=== PATIENT | male | born 1955 | race Caucasian/White ===

== ENCOUNTER 2021-09-11 13:59 | Inpatient (IN) | payer MEDICARE ==
[~2021-09-11] VITALS: Ht 172.7 cm; Wt 114.1 kg
[2021-09-11] VITALS (18 sets, daily range): BP systolic 110–161; BP diastolic 65–98
[2021-09-11] MEDS ORDERED: DEXTROSE 50%-WATER SYRINGE IV PRN (20:30)
[2021-09-11] MEDS ORDERED: REMDESIVIR (EUA) 200 MG in NS 100ML 100 ML IV STA (20:30)
--- NOTE | 2021-09-11 20:30 | PCM.HP ---
HISTORY & PHYSICAL HISTORY & PHYSICAL DATE OF ADMISSION: September 11, 2021 CHIEF COMPLAINT: Progressively worsening shortness of breath over 1 week HISTORY OF PRESENT ILLNESS: 66-year-old male with previous history of diabetes mellitus hypertension and dyslipidemia was apparently in her usual health he claims about 1 week prior to this admission developed upper respiratory symptoms that progressively got worse therefore went to the local emergency room today and fou nd to have Covid positive with severe hypoxemia and troponin leak patient was brought to this hospital for further managed,Patient denies any chest pain nausea vomiting abdominal pain no diarrhea no urinary symptoms Denies any headache blurry vision swallowing difficulties ALLERGIES: No known drug allergies CURRENT MEDICATIONS: Atenolol Metformin glipizide and fenofibrate -Doses not known PAST MEDICAL HISTORY: Diabetes mellitus hypertension hyperlipidemia right knee arthroplasty Patient also claimed that he had Covid infection about 8 months prior to this admission to SOCIAL HISTORY: Denies smoking alcohol or drug use 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, Lives alone Never immunized against Covid 2 FAMILY HISTORY: Late onset heart disease with father REVIEW OF SYSTEMS: Losing weight blood sugar under control no effort dyspnea no effort angina no easy fatigability normal appetite regular bowel movement no urinary symptoms all systems reviewed and negative except mentioned above VITAL SIGNS: Vital Signs Date Time Temp Pulse Resp B/P (MAP) Pulse Ox O2 Delivery O2 Flow Rate FiO2 09/11/21 18:48 22 94 09/11/21 18:47 96 22 94 Comfort Casey 30.00 100 PHYSICAL EXAMINATION: HEENT anicteric sclera pupil round react light mucous membrane is Slightly dry neck supple no JVD or carotid bruit noted Lungs bilateral Rales present prolonged expiration no wheezes heard Heart regular rate and rhythm no murmur gallop appreciated Abdomen obese nontender bowel sounds present soft no guarding no rigidity no organomegaly noted Extremities Trace edema ,no calf tenderness 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 oriented normal mood normal insight cranial nerves grossly intact none muscle power 5/5 in all 4 limbs nonfocal exam LABORATORY DATA: None available IMAGING: None available SUMMARY: 66-year-old male with previous history of diabetes mellitus hypertension dyslipidemia previous Covid infection presented with recurrent infection and severe hypoxemic respiratory failure, he is unvaccinated ASSESSMENT/PLAN: Acute hypoxemic respiratory failure Covid SARS 2 infection Obesity Diabetes mellitus type 2 Hypertension History of dyslipidemia Plan: We will start on remdesivir dexamethasone insulin Lovenox high flow oxygen by nasal cannula and labs in the morning TREVOR MODI MD Sep 11, 2021 20:30
[2021-09-11] MEDS: LOVENOX SQ SCH (21:00)
[2021-09-11] MEDS ORDERED: NS 100ML 100 ML IV ONE (21:29)
[2021-09-11] MEDS ORDERED: NS 250ML 250 ML ONE (21:49)
[2021-09-12] VITALS (81 sets, daily range): BP systolic 95–156; BP diastolic 44–109
--- NOTE | 2021-09-12 04:57 | PRM.PN ---
Subjective Subjective Date: Sep 12, 2021 Time: 04:57 Subjective No chest pain at rest chest discomfort with coughing only no PE on CT [facility] patient did not get his flu or Covid vaccines he is Covid positive and influenza B positive patient wishes to be DO NOT INTUBATE. Upright in bed on comfort flow VTE VTE Risk Total Score: >5 VTE Risk Score VTE Risk: Score 0-1 = Low Risk (Aggressive mobilization; early ambulation; no VTE prophylaxis required) Score 2: Moderate Risk (Intermittent/Pneumatic Compression Device OR Lovenox/Heparin/Coumadin) Score 3-4: High Risk (Intermittent/Pneumatic Compression Device AND Lovenox/Heparin/Coumadin) Score > or =5: Highest Risk (Intermittent/Pneumatic Compression Device AND Lovenox/Heparin/Coumadin) Antico:Hep/LMWH/Coum/Xarelto: Yes Mechanical device ordered: Yes Review of Systems Constitutional: Weakness; No: Fever, Chills, Sweats, Malaise, Other Eyes: No: Pain, Vision change, Conjunctivae inflammation, Eyelid inflammation, Other, Redness ENT: No: Ear pain, Ear discharge, Nose pain, Nose discharge, Nose congestion, Mouth pain, Mouth swelling, Throat pain, Throat swelling, Other Respiratory: Cough Cardiovascular: No: Chest Pain Gastrointestinal: No: Nausea, Vomiting, Abdominal Pain, Diarrhea, Constipation, Melena, Hematochezia, Other Genitourinary: No Dysuria, No Frequency, No Incontinence, No Hematuria, No Retention, No Other Musculoskeletal: No: other, neck pain, shoulder pain, arm pain, back pain, hand pain, leg pain, foot pain Skin: No: Rash, Lesions, Jaundice, Bruising, Other Neurological: Weakness; No: Numbness, Incoordination, Change in speech, Confusion, Seizures, Other Objective General: Alert, Oriented X3, Cooperative, No acute distress, Other (Sitting upright on comfort flow) HEENT: Atraumatic, PERRLA Neck: Supple, No JVD Lungs: Clear to auscultation, Other (Mildly coarse breath sounds throughout) Heart: Regular rate, Normal S1, Normal S2, No murmurs Abdomen: Normal bowel sounds, Soft, No tenderness, No masses Extremities: No clubbing, No cyanosis, No edema, Normal pulses, No tenderness/swelling Skin: No rashes, No breakdown, No significant lesion Neuro: Normal gait, Normal speech, Strength at 5/5 X4 ext, Normal tone, Sensation intact Psych/Mental Status: Mental status NL, Mood NL All Results(Lab/Rad) Current Medications Medications (Trade) Dose Ordered Sig/Gabo Route PRN Reason Start Time Stop Time Status Last Admin Dose Admin Remdesivir 200 mg/ Sodium Chloride 140 ml @ 120.69 mls/ hr OT STAT IV 09/11/21 20:30 09/11/21 21:39 UNV 09/11/21 21:00 Remdesivir 100 mg/ Sodium Chloride 120 ml @ 111.111 mls/hr Q24HRS IV 09/12/21 20:30 09/16/21 00:00 UNV Enoxaparin Sodium (Lovenox) 40 mg Q24HRS SQ 09/11/21 20:30 10/11/21 20:29 09/11/21 21:00 Dextrose (Dextrose 50%-Water Syringe) 25 ml STAT PRN IV HYPOGLYCEMIA 09/11/21 20:30 10/11/21 20:29 Sodium Chloride 100 ml @ ud STK-MED ONCE IV 09/11/21 21:29 09/11/21 21:30 DC Sodium Chloride 250 ml @ ud STK-MED ONCE .ROUTE 09/11/21 21:49 09/11/21 21:50 DC Course Sepsis Screening Results: Posi: NEGATIVE Sepsis Qualifier/Stage: NO DEFINITE RISK Vitals & review Data Current Medications Medications (Trade) Dose Ordered Sig/Gabo PRN Reason Start Time Stop Time Status Last Admin Dextrose (Dextrose 50%-Water Syringe) 25 ml STAT PRN HYPOGLYCEMIA 09/11/21 20:30 10/11/21 20:29 Enoxaparin Sodium (Lovenox) 40 mg Q24HRS 09/11/21 20:30 10/11/21 20:29 09/11/21 21:00 Remdesivir 100 mg/ Sodium Chloride 120 ml @ 111.111 mls/hr Q24HRS 09/12/21 20:30 09/16/21 00:00 UNV Remdesivir 200 mg/ Sodium Chloride 140 ml @ 120.69 mls/ hr OT STAT 09/11/21 20:30 09/11/21 21:39 UNV 09/11/21 21:00 LEVEL 1 SEPSIS INFECTION CRITE: None/Not assessed O2 Sat by Pulse Oximetry: 91 Oxygen Flow Rate: 30.00 Assessment/Plan Assessment/Plan Assessment/Plan 66-year-old male with previous history of diabetes mellitus hypertension dyslipidemia previous Covid infection presented with recurrent infection and severe hypoxemic respiratory failure, he is unvaccinated. CTA at OSH negative for PE ASSESSMENT/PLAN: Acute hypoxemic respiratory failure Covid SARS 2 infection Obesity Diabetes mellitus type 2 Hypertension History of dyslipidemia Influenza B positive OSH troponin mildly elevated initial trop 131 here trending no clear acute ischemic changes on EKG received ASA remdesivir, oseltamivir, dexamethasone insulin Lovenox high flow oxygen by nasal cannula PPX, pepcid, SCDs Enoxaparin JAZLYN FUENTES MD Sep 12, 2021 04:57
[2021-09-12 05:38] LABS: MEAN CORP HGB 28.2 pg (26-34); RED CELL DISTRIBUTION WIDTH 16.1 % (11.5-14.5)
[2021-09-12 06:02] LABS: BE(B) 3.6 mmol/L (-2.0-2.0); HCO3act 26.8 mmol/L (22.0-26.0); pO2 64.3 mmHg (80.0-100.0)
[2021-09-12 06:23] LABS: CARBON DIOXIDE 23.9 mmol/L (20.0-32)
[2021-09-12] MEDS: PEPCID IV SCH ×2 (08:18→21:00)
[2021-09-12] MEDS: DEXAMETHASONE 10 MG/ML VIAL IV SCH (08:18)
[2021-09-12] MEDS: TAMIFLU PO SCH ×2 (08:19→21:00)
[2021-09-12] MEDS ORDERED: TYLENOL PO ONE (10:26)
[2021-09-12] MEDS ORDERED: TYLENOL PO PRN (11:00)
[2021-09-12] MEDS: VITAMIN D PO SCH (11:00)
[2021-09-12] MEDS: ASPIRIN EC PO SCH (11:00)
[2021-09-12] MEDS ORDERED: DEXTROSE 50%-WATER SYRINGE IV PRN (12:30)
[2021-09-12] MEDS: HUMALOG SQ SCH ×2 (12:31→17:48)
--- NOTE | 2021-09-12 14:54 | TELE.CONS ---
Consultation Reason for Consult: Reason for Consultation: COVID History of Present Illness History of Patient Comments The pt kristine a 66 YOM wiht pmhx of HTN DM and obesity who presents to the hospital for SOB. Pt is noted ot have COVID PNA and influenza per outside hospital report with wornsning hypoxia. Pt on airvo and transferred to Unit. PT started on decadron lovenox and remdesivir as well as oseltamivir Review of Systems Constitutional: Weakness; No: Fever, Chills, Sweats, Malaise, Other Eyes: No: Pain, Vision change, Conjunctivae inflammation, Eyelid inflammation, Other, Redness ENT: No: Ear pain, Ear discharge, Nose pain, Nose discharge, Nose congestion, Mouth pain, Mouth swelling, Throat pain, Throat swelling, Other Respiratory: Cough Cardiovascular: No: Chest Pain Gastrointestinal: No: Nausea, Vomiting, Abdominal Pain, Diarrhea, Constipation, Melena, Hematochezia, Other Genitourinary: No Dysuria, No Frequency, No Incontinence, No Hematuria, No Retention, No Other Musculoskeletal: No: other, neck pain, shoulder pain, arm pain, back pain, hand pain, leg pain, foot pain Skin: No: Rash, Lesions, Jaundice, Bruising, Other Neurological: Weakness; No: Numbness, Incoordination, Change in speech, Confusion, Seizures, Other VITALS REVIEW VITALS Vital Sign - Last 24 Hours 09/12/21 09/12/21 09/12/21 09/12/21 07:00 07:10 07:15 07:25 Pulse 71 67 68 66 Resp 13 26 4 B/P (MAP) 116/70 (85) 102/70 (81) Pulse Ox 92 93 92 92 09/12/21 09/12/21 09/12/21 09/12/21 07:30 07:40 07:45 07:55 Pulse 65 72 65 66 Resp 9 17 B/P (MAP) 114/78 (90) 99/64 (76) Pulse Ox 95 95 95 94 09/12/21 09/12/21 09/12/21 09/12/21 08:00 08:07 09:40 09:45 Pulse 66 72 71 Resp 25 27 B/P (MAP) 132/84 (100) Pulse Ox 95 95 97 O2 Delivery Comfort Casey O2 Flow Rate 30.00 09/12/21 09/12/21 09/12/21/6/22 09:50 09:55 10:00 10:10 Pulse 72 71 72 70 Resp 20 24 18 28 B/P (MAP) 117/76 (90) 114/72 (86) Pulse Ox 93 95 94 97 O2 Delivery Comfort Casey FiO2 100 09/12/21 09/12/21 09/12/21 09/12/21 10:15 10:25 10:30 10:40 Pulse 68 68 67 73 Resp 31 22 23 26 B/P (MAP) 114/72 (86) 113/73 (86) Pulse Ox 96 95 96 92 09/12/21 09/12/21 09/12/21 09/12/21 10:45 10:50 10:55 11:00 Pulse 74 70 71 Resp 27 B/P (MAP) 114/72 (86) Pulse Ox 93 97 95 95 FiO2 80 09/12/21 09/12/21 09/12/21 09/12/21 11:10 11:15 11:25 11:30 Pulse 70 69 72 67 Resp 18 25 23 B/P (MAP) 112/73 (86) 116/68 (84) Pulse Ox 97 97 98 93 09/12/21 09/12/21 09/12/21 09/12/21 11:40 11:45 11:55 12:00 Pulse 68 70 65 Resp 25 23 B/P (MAP) 110/78 (89) 104/62 (76) Pulse Ox 93 90 86 O2 Delivery Comfort Casey O2 Flow Rate 30.00 09/12/21 09/12/21 09/12/21 09/12/21 12:00 12:10 12:11 12:15 Pulse 64 62 68 61 Resp 15 20 20 19 B/P (MAP) 95/62 (73) Pulse Ox 90 90 93 92 O2 Delivery Comfort Casey O2 Flow Rate 30.00 FiO2 80 09/12/21 09/12/21 09/12/21 09/12/21 12:25 12:30 12:40 12:45 Pulse 65 60 60 62 Resp 22 21 21 20 B/P (MAP) 113/75 (88) 124/78 (93) Pulse Ox 94 95 97 96 09/12/21 09/12/21 09/12/21 09/12/21 12:46 12:55 13:00 13:10 Pulse 70 62 65 61 Resp 20 14 16 20 B/P (MAP) 122/78 (93) 126/83 (97) Pulse Ox 97 97 97 97 FiO2 70 09/12/21 09/12/21 09/12/21 09/12/21 13:15 13:25 13:30 13:40 Pulse 60 61 67 112 Resp 19 18 25 18 B/P (MAP) 105/69 (81) 127/82 (97) Pulse Ox 94 94 93 94 09/12/21 09/12/21 09/12/21 09/12/21 13:45 13:55 14:00 14:05 Pulse 129 72 115 72 Resp 21 14 13 22 B/P (MAP) 119/74 (89) Pulse Ox 96 95 95 96 FiO2 60 09/12/21 09/12/21 14:10 14:15 Pulse 72 71 Resp 16 20 B/P (MAP) 105/72 (83) Pulse Ox 95 97 LABS LAB RESULTS Laboratory Tests Test 09/12/21 05:00 09/12/21 09:40 09/12/21 12:02 White Blood Count 4.9 10^3/uL (4.5-11.0) Red Blood Count 4.76 10^6/uL (4.50-5.90) Hemoglobin 13.4 g/dL (13.9-16.3) Hematocrit 42.1 % (37.0-53.0) Mean Corpuscular Volume 88.4 fL (78-100) Mean Corpuscular Hemoglobin 28.2 pg (26-34) Mean Corpuscular Hemoglobin Concent 31.8 g/dL (33-36.5) Red Cell Distribution Width 16.1 % (11.5-14.5) Platelet Count 146 10^3/uL (150-400) Mean Platelet Volume 10.2 fL (7.8-11.0) Blood Gas Sample Site RT BRACIAL ARTERY Blood Gas pH 7.490 (7.350-7.450) Blood Gas PCO2 36.0 mmHg (35.0-45.0) Blood Gas PO2 64.3 mmHg (80.0-100.0) Blood Gas HCO3 26.8 mmol/L (22.0-26.0) Blood Gas Base Excess 3.6 mmol/L (-2.0-2.0) Lazaro Test POSITIVE Arterial Blood Oxygen Saturation 92.7 % (94.0-97.00) Deoxyhemoglobin 7.3 % (0.0-5.0) Carboxyhemoglobin 0.1 % (0.0-3.9) Methemoglobin 0.1 % (0.00-5.0) Total Hemoglobin 14.2 % (12.0-17.8) Total Oxygen Concentration 18.5 % (13.5-17.5) Blood Gas Temperature 37.0 Oxygen Delivery Method (LAB) CF FiO2 100 % (20-101) Sodium Level 137 mmol/L (132-145) Potassium Level 3.5 mmol/L (3.6-5.2) Chloride Level 101.0 mmol/L (96-109) Carbon Dioxide Level 23.9 mmol/L (20.0-32) Total Carbon Dioxide 27.9 mmol/L (23-27) Anion Gap 15.6 Blood Urea Nitrogen 22 mg/dL (7-18) Creatinine 1.10 mg/dL (0.59-1.40) Estimated GFR () 81.3 (>/=60) Est GFR (CKD-EPI)(Non-Afr [place]) 67.2 (>/=60) BUN/Creatinine Ratio 20.0 Glucose Level 160 mg/dL (70-110) Hemoglobin A1c 10.0 % (0-5.7) Calcium Level 8.4 mg/dL (8.4-10.5) Phosphorus Level 2.6 mg/dL (2.5-4.9) Magnesium Level 2.6 mg/dL (1.8-2.4) Total Bilirubin 1.1 mg/dL (0.2-1.0) Aspartate Amino Transf (AST/SGOT) 85 U/L (0-35) Alanine Aminotransferase (ALT/SGPT) 30 U/L (12-78) Alkaline Phosphatase 52 U/L (50-136) Troponin I High Sensitivity 131 ng/L (0-75) 116 ng/L (0-75) Total Protein 6.3 g/dL (6.4-8.2) Albumin 2.1 g/dL (3.4-5.0) Globulin 4.2 Albumin/Globulin Ratio 0.500 Bedside Glucose 266 (70-110) Laboratory Tests Test 09/12/21 05:00 09/12/21 09:40 09/12/21 12:02 White Blood Count 4.9 10^3/uL Red Blood Count 4.76 10^6/uL Hemoglobin 13.4 g/dL Hematocrit 42.1 % Mean Corpuscular Volume 88.4 fL Mean Corpuscular Hemoglobin 28.2 pg Mean Corpuscular Hemoglobin Concent 31.8 g/dL Red Cell Distribution Width 16.1 % Platelet Count 146 10^3/uL Mean Platelet Volume 10.2 fL Blood Gas Sample Site RT BRACIAL ARTERY Blood Gas pH 7.490 Blood Gas PCO2 36.0 mmHg Blood Gas PO2 64.3 mmHg Blood Gas HCO3 26.8 mmol/L Blood Gas Base Excess 3.6 mmol/L Lazaro Test POSITIVE Arterial Blood Oxygen Saturation 92.7 % Deoxyhemoglobin 7.3 % Carboxyhemoglobin 0.1 % Methemoglobin 0.1 % Total Hemoglobin 14.2 % Total Oxygen Concentration 18.5 % Blood Gas Temperature 37.0 Oxygen Delivery Method (LAB) CF FiO2 100 % Sodium Level 137 mmol/L Potassium Level 3.5 mmol/L Chloride Level 101.0 mmol/L Carbon Dioxide Level 23.9 mmol/L Total Carbon Dioxide 27.9 mmol/L Anion Gap 15.6 Blood Urea Nitrogen 22 mg/dL Creatinine 1.10 mg/dL Estimated GFR () 81.3 Est GFR (CKD-EPI)(Non-Afr [place]) 67.2 BUN/Creatinine Ratio 20.0 Glucose Level 160 mg/dL Hemoglobin A1c 10.0 % Calcium Level 8.4 mg/dL Phosphorus Level 2.6 mg/dL Magnesium Level 2.6 mg/dL Total Bilirubin 1.1 mg/dL Aspartate Amino Transf (AST/SGOT) 85 U/L Alanine Aminotransferase (ALT/SGPT) 30 U/L Alkaline Phosphatase 52 U/L Troponin I High Sensitivity 131 ng/L 116 ng/L Total Protein 6.3 g/dL Albumin 2.1 g/dL Globulin 4.2 Albumin/Globulin Ratio 0.500 Bedside Glucose 266 Current Medications Medications (Trade) Dose Ordered Sig/Gabo Route PRN Reason Start Time Stop Time Status Last Admin Dose Admin Remdesivir 200 mg/ Sodium Chloride 140 ml @ 120.69 mls/ hr OT STAT IV 09/11/21 20:30 09/12/21 09:32 DC 09/11/21 21:00 Remdesivir 100 mg/ Sodium Chloride 120 ml @ 111.111 mls/hr HS IV 09/12/21 21:00 3/8/22 20:59 Enoxaparin Sodium (Lovenox) 40 mg Q24HRS SQ 09/11/21 20:30 10/11/21 20:29 09/11/21 21:00 Dextrose (Dextrose 50%-Water Syringe) 25 ml STAT PRN IV HYPOGLYCEMIA 09/11/21 20:30 09/12/21 12:31 DC Sodium Chloride 100 ml @ ud STK-MED ONCE IV 09/11/21 21:29 09/11/21 21:30 DC Sodium Chloride 250 ml @ STK-MED ONCE .ROUTE 09/11/21 21:49 09/11/21 21:50 DC Famotidine (Pepcid) 20 mg BID IV 09/12/21 09:00 10/12/21 08:59 09/12/21 08:18 Oseltamivir Phosphate (Tamiflu) 75 mg BID PO 09/12/21 09:00 09/17/21 08:59 09/12/21 08:19 Aspirin (Aspirin Ec) 81 mg DAILY PO 09/12/21 11:00 10/12/21 10:59 09/12/21 11:00 Cholecalciferol (Vitamin D) 5,000 unit DAILY PO 09/12/21 11:00 10/12/21 10:59 09/12/21 11:00 Ascorbic Acid (Vitamin C) 500 mg BID PO 09/12/21 21:00 10/12/21 20:59 Melatonin (Melatonin) 3 mg HS PRN PO INSOMNIA 09/12/21 10:00 10/12/21 09:59 Zinc Sulfate (Zinc Sulfate) 220 mg DAILY PO 09/13/21 09:00 10/13/21 08:59 Acetaminophen (Tylenol) 500 mg STK-MED ONCE PO 09/12/21 10:26 09/12/21 10:26 DC Acetaminophen (Tylenol) 500 mg Q6H PRN PO PAIN 1 - 3 09/12/21 11:00 10/12/21 10:59 Insulin Human Lispro (Humalog) Give when food is in front... TIDM SQ 09/12/21 13:00 10/12/21 12:59 09/12/21 12:31 Dextrose (Dextrose 50%-Water Syringe) 25 ml STAT PRN IV HYPOGLYCEMIA 09/12/21 12:30 10/12/21 12:29 VTE VTE Risk Total Score: >5 VTE Risk Score VTE Risk: Score 0-1 = Low Risk (Aggressive mobilization; early ambulation; no VTE prophylaxis required) Score 2: Moderate Risk (Intermittent/Pneumatic Compression Device OR Lovenox/Heparin/Coumadin) Score 3-4: High Risk (Intermittent/Pneumatic Compression Device AND Lovenox/Heparin/Coumadin) Score > or =5: Highest Risk (Intermittent/Pneumatic Compression Device AND Lovenox/Heparin/Coumadin) Antico:Hep/LMWH/Coum/Xarelto: Yes Mechanical device ordered: Yes VTE VTE Present on Admission: Yes Currently receiving anticoagul: Yes VTE Risk Total Score: >5 Antico:Hep/LMWH/Coum/Xarelto: Yes Mechanical device ordered: Yes Assessment/Plan Assessment/Plan Assessment/Plan 66-year-old male with previous history of diabetes mellitus hypertension dyslipidemia previous Covid infection presented with recurrent infection and severe hypoxemic respiratory failure, he is unvaccinated. #1 Neuro: Tylenol for pain precedex if delirious #2 CV: The pt is normotensive at present. #3 Pulm: Pt has covid PNA now c/b ARDS and acute respiratory failure with hypoxia requiring airvo. The pt is on FIo2 of 80% and 30 L Pt received decadron, remdesivir, vit c, thiamine, check CXR, start duonebs, melatonin. Cont oseltami vir #4 GI: Diet as tolerated #5 Renal: Monitor for renal failure, replete lytes #6 ID: Covid + and flu getting remdesivir and oseltamivir #7 Endo: keep FS 150-180 #8 Heme: Tx plats >10k hgb >7, pt at risk for clotting and so will give a/c #9 PPx: lovenox and PPI I discussed pt with PROOFING MACHINE OPERATOR and completed the video assessment with assistance from the PROOFING MACHINE OPERATOR. I spent a total of greater than 60 minutes formulating critical care for this patient today. I saw this patient and completed a full visual exam via audio-visual HIPAA compliant technology. FAIZA MONROY MD Sep 12, 2021 14:54
--- NOTE | 2021-09-12 15:21 | DIREP ---
PROCEDURE:CHEST 1 VIEW COMPARISON:None. INDICATIONS:pneumonia FINDINGS: LUNGS/PLEURA:Extensive ground-glass opacities are present throughout both lungs. No effusions. VASCULATURE:Normal. Unremarkable pulmonary vasculature. CARDIAC:Mild cardiomegaly. MEDIASTINUM:Normal. No visible mass or adenopathy. BONES:Normal. No fracture or visible bony lesion. OTHER:Negative. CONCLUSION:Findings consistent with COVID-19 pneumonia. Mild cardiomegaly. Dictated by: Wilber Rogers M.D. on 09/12/2021 at 03:17 PM
[2021-09-12] MEDS: LOVENOX SQ SCH (20:30)
[2021-09-12] MEDS ORDERED: LANTUS SQ SCH (21:00)
[2021-09-12] MEDS: REMDESIVIR (EUA) 100 MG in NS 100ML 100 ML IV SCH (21:00)
[2021-09-12] MEDS: VITAMIN C PO SCH (21:00)
[2021-09-13] VITALS (73 sets, daily range): BP systolic 95–158; BP diastolic 26–98
[2021-09-13 05:34] LABS: BASOPHIL % 0.2 % (0.0-0.2); LYMPHOCYTES # 0.37 10^3/uL1 (1.0-4.8); LYMPHOCYTES % 8.3 % (24.0-44.0); MEAN CORP HGB 28.2 pg (26-34); MONOCYTES # 0.3 10^3/uL (0.3-0.8); MONOCYTES % 6.5 % (5.0-12.0); NEUTROPHIL # 3.8 10^3/uL (1.8-7.7); NEUTROPHILS % 84.3 % (41.0-85.0); PLATELET COUNT 165 10^3/uL (150-400); RED CELL DISTRIBUTION WIDTH 15.7 % (11.5-14.5)
[2021-09-13 05:53] LABS: CARBON DIOXIDE 28.9 mmol/L (20.0-32)
[2021-09-13] MEDS: HUMALOG SQ SCH ×3 (08:14→18:09)
[2021-09-13] MEDS: ZINC SULFATE PO SCH (08:24)
[2021-09-13] MEDS: VITAMIN D PO SCH (08:24)
[2021-09-13] MEDS: VITAMIN C PO SCH ×2 (08:24→22:34)
[2021-09-13] MEDS: TAMIFLU PO SCH ×2 (08:24→22:35)
[2021-09-13] MEDS: PEPCID IV SCH ×2 (08:25→22:34)
[2021-09-13] MEDS: DEXAMETHASONE 10 MG/ML VIAL IV SCH (08:25)
[2021-09-13] MEDS: ASPIRIN EC PO SCH (08:25)
--- NOTE | 2021-09-13 08:55 | PCM.EKG ---
[facility] Test Date: 2021-09-12 Test Time: 17:59:44 Pat Name: LEEANNE RUVALCABA Department: Room: ICU7 A Gender: M Community Facilitator: : [id number] Requested By: JAZLYN FUENTES Order Number: [id number] Reading MD: Measurements Intervals [place] Rate: 64 P: 40 IA: 180 QRS: -62 QRSD: 114 T: -2 QT: 439 QTc: 453 Interpretive Statements Sinus rhythm Left anterior fascicular block Abnormal R-wave progression, late transition Borderline T abnormalities, inferior leads No previous ECG available for comparison Please click the below link to view image of tracing.
--- NOTE | 2021-09-13 09:08 | PRM.PN ---
Subjective Subjective Date: Sep 13, 2021 Time: 09:05 Subjective Patient examined at bedside had a discussion regarding changing positions proning up to chair using incentive spirometry and other pulmonary toilet measures and discussion with family members he would like to change his CODE STATUS from DNI to full code at this time VTE VTE Risk Total Score: >5 VTE Risk Score VTE Risk: Score 0-1 = Low Risk (Aggressive mobilization; early ambulation; no VTE prophylaxis required) Score 2: Moderate Risk (Intermittent/Pneumatic Compression Device OR Lovenox/Heparin/Coumadin) Score 3-4: High Risk (Intermittent/Pneumatic Compression Device AND Lovenox/Heparin/Coumadin) Score > or =5: Highest Risk (Intermittent/Pneumatic Compression Device AND Lovenox/Heparin/Coumadin) Antico:Hep/LMWH/Coum/Xarelto: Yes Mechanical device ordered: Yes Review of Systems Constitutional: Weakness; No: Fever, Chills, Sweats, Malaise, Other Eyes: No: Pain, Vision change, Conjunctivae inflammation, Eyelid inflammation, Other, Redness ENT: No: Ear pain, Ear discharge, Nose pain, Nose discharge, Nose congestion, Mouth pain, Mouth swelling, Throat pain, Throat swelling, Other Respiratory: Cough, Shortness of breath, SOB with excertion Cardiovascular: No: Chest Pain Gastrointestinal: No: Nausea, Vomiting, Abdominal Pain, Diarrhea, Constipation, Melena, Hematochezia, Other Genitourinary: No Dysuria, No Frequency, No Incontinence, No Hematuria, No Retention, No Other Musculoskeletal: No: other, neck pain, shoulder pain, arm pain, back pain, hand pain, leg pain, foot pain Skin: No: Rash, Lesions, Jaundice, Bruising, Other Neurological: Weakness; No: Numbness, Incoordination, Change in speech, Confusion, Seizures, Other Objective General: Alert, Oriented X3, Cooperative, No acute distress, Other (Sitting upright on comfort flow) HEENT: Atraumatic, PERRLA Neck: Supple, No JVD Lungs: Other (Mildly coarse breath sounds throughout) Heart: Regular rate, Normal S1, Normal S2, No murmurs Abdomen: Normal bowel sounds, Soft, No tenderness, No masses Extremities: No clubbing, No cyanosis, No edema, Normal pulses, No tenderness/swelling Skin: No rashes, No breakdown, No significant lesion Neuro: Normal gait, Normal speech, Strength at 5/5 X4 ext, Normal tone, Sensation intact Psych/Mental Status: Mental status NL, Mood NL All Results(Lab/Rad) Current Medications Medications (Trade) Dose Ordered Sig/Gabo Route PRN Reason Start Time Stop Time Status Last Admin Dose Admin Remdesivir 200 mg/ Sodium Chloride 140 ml @ 120.69 mls/ hr OT STAT IV 09/11/21 20:30 09/11/21 21:39 UNV 09/11/21 21:00 Remdesivir 100 mg/ Sodium Chloride 120 ml @ 111.111 mls/hr Q24HRS IV 09/12/21 20:30 09/16/21 00:00 UNV Enoxaparin Sodium (Lovenox) 40 mg Q24HRS SQ 09/11/21 20:30 10/11/21 20:29 09/11/21 21:00 Dextrose (Dextrose 50%-Water Syringe) 25 ml STAT PRN IV HYPOGLYCEMIA 09/11/21 20:30 10/11/21 20:29 Sodium Chloride 100 ml @ ud STK-MED ONCE IV 09/11/21 21:29 09/11/21 21:30 DC Sodium Chloride 250 ml @ ud STK-MED ONCE .ROUTE 09/11/21 21:49 09/11/21 21:50 DC Course Sepsis Screening Results: Posi: NEGATIVE Sepsis Qualifier/Stage: NO DEFINITE RISK Vitals & review Data Current Medications Medications (Trade) Dose Ordered Sig/Gabo PRN Reason Start Time Stop Time Status Last Admin Dextrose (Dextrose 50%-Water Syringe) 25 ml STAT PRN HYPOGLYCEMIA 09/11/21 20:30 10/11/21 20:29 Enoxaparin Sodium (Lovenox) 40 mg Q24HRS 09/11/21 20:30 10/11/21 20:29 09/11/21 21:00 Remdesivir 100 mg/ Sodium Chloride 120 ml @ 111.111 mls/hr Q24HRS 09/12/21 20:30 09/16/21 00:00 UNV Remdesivir 200 mg/ Sodium Chloride 140 ml @ 120.69 mls/ hr OT STAT 09/11/21 20:30 09/11/21 21:39 UNV 09/11/21 21:00 LEVEL 1 SEPSIS INFECTION CRITE: None/Not assessed O2 Sat by Pulse Oximetry: 89 Oxygen Flow Rate: 30.00 Assessment/Plan Assessment/Plan Assessment/Plan 66-year-old male with previous history of diabetes mellitus hypertension, dyslipidemia, previous Covid infection presented with recurrent COVID-19 infection and influenza B with severe hypoxemic respiratory failure, he is unvaccinated. CTA at OSH negative for PE ASSESSMENT/PLAN: Acute hypoxemic respiratory failure Covid SARS 2 infection Obesity Diabetes mellitus type 2 hgb A1c 10 indicated chronic poor control Hypertension History of dyslipidemia Influenza B positive OSH troponin mildly elevated initial trop 131 here trending down no clear acute ischemic changes on EKG received ASA remdesivir, oseltamivir, dexamethasone insulin Lovenox high flow oxygen by nasal cannula PPX, pepcid, SCDs Enoxaparin Critical Care Recommendations 1. Titrate FiO2 to maintain oxygen saturation 92 to 96% 2. Continue Decadron and remdesivir 3. Maintain negative fluid balance 4. Continue Tamiflu for influenza 5. We will increase Lantus to 10 units subcu twice a day 6. Increase insulin sliding scale aggressiveness to maintain glucose less than 180 7. DVT and GI prophylaxis FULL CODE JAZLYN FUENTES MD Sep 13, 2021 09:08
[2021-09-13] MEDS ORDERED: DEXTROSE 50%-WATER SYRINGE IV PRN (10:00)
[2021-09-13] MEDS: LANTUS SQ SCH (10:11)
--- NOTE | 2021-09-13 10:38 | TELE.CONS ---
Consultation Reason for Consult: Reason for Consultation: Rounds were completed with bedside nurse as well as charge nurse. Review of Systems Constitutional: Weakness; No: Fever, Chills, Sweats, Malaise, Other Eyes: No: Pain, Vision change, Conjunctivae inflammation, Eyelid inflammation, Other, Redness ENT: No: Ear pain, Ear discharge, Nose pain, Nose discharge, Nose congestion, Mouth pain, Mouth swelling, Throat pain, Throat swelling, Other Respiratory: Cough, Shortness of breath, SOB with excertion Cardiovascular: No: Chest Pain Gastrointestinal: No: Nausea, Vomiting, Abdominal Pain, Diarrhea, Constipation, Melena, Hematochezia, Other Genitourinary: No Dysuria, No Frequency, No Incontinence, No Hematuria, No Retention, No Other Musculoskeletal: No: other, neck pain, shoulder pain, arm pain, back pain, hand pain, leg pain, foot pain Skin: No: Rash, Lesions, Jaundice, Bruising, Other Neurological: Weakness; No: Numbness, Incoordination, Change in speech, Confusion, Seizures, Other VITALS REVIEW VITALS Vital Sign - Last 24 Hours 09/13/21 09:10 Pulse 65 Resp 22 Pulse Ox 93 O2 Delivery Comfort Casey FiO2 70 LABS LAB RESULTS Laboratory Tests Test 09/12/21 05:00 09/12/21 09:40 09/12/21 12:02 09/12/21 16:53 White Blood Count 4.9 10^3/uL (4.5-11.0) Red Blood Count 4.76 10^6/uL (4.50-5.90) Hemoglobin 13.4 g/dL (13.9-16.3) Hematocrit 42.1 % (37.0-53.0) Mean Corpuscular Volume 88.4 fL (78-100) Mean Corpuscular Hemoglobin 28.2 pg (26-34) Mean Corpuscular Hemoglobin Concent 31.8 g/dL (33-36.5) Red Cell Distribution Width 16.1 % (11.5-14.5) Platelet Count 146 10^3/uL (150-400) Mean Platelet Volume 10.2 fL (7.8-11.0) Blood Gas Sample Site RT BRACIAL ARTERY Blood Gas pH 7.490 (7.350-7.450) Blood Gas PCO2 36.0 mmHg (35.0-45.0) Blood Gas PO2 64.3 mmHg (80.0-100.0) Blood Gas HCO3 26.8 mmol/L (22.0-26.0) Blood Gas Base Excess 3.6 mmol/L (-2.0-2.0) Lazaro Test POSITIVE Arterial Blood Oxygen Saturation 92.7 % (94.0-97.00) Deoxyhemoglobin 7.3 % (0.0-5.0) Carboxyhemoglobin 0.1 % (0.0-3.9) Methemoglobin 0.1 % (0.00-5.0) Total Hemoglobin 14.2 % (12.0-17.8) Total Oxygen Concentration 18.5 % (13.5-17.5) Blood Gas Temperature 37.0 Oxygen Delivery Method (LAB) CF FiO2 100 % (20-101) Sodium Level 137 mmol/L (132-145) Potassium Level 3.5 mmol/L (3.6-5.2) Chloride Level 101.0 mmol/L (96-109) Carbon Dioxide Level 23.9 mmol/L (20.0-32) Total Carbon Dioxide 27.9 mmol/L (23-27) Anion Gap 15.6 Blood Urea Nitrogen 22 mg/dL (7-18) Creatinine 1.10 mg/dL (0.59-1.40) Estimated GFR () 81.3 (>/=60) Est GFR (CKD-EPI)(Non-Afr Cambodian) 67.2 (>/=60) BUN/Creatinine Ratio 20.0 Glucose Level 160 mg/dL (70-110) Hemoglobin A1c 10.0 % (0-5.7) Calcium Level 8.4 mg/dL (8.4-10.5) Phosphorus Level 2.6 mg/dL (2.5-4.9) Magnesium Level 2.6 mg/dL (1.8-2.4) Total Bilirubin 1.1 mg/dL (0.2-1.0) Aspartate Amino Transf (AST/SGOT) 85 U/L (0-35) Alanine Aminotransferase (ALT/SGPT) 30 U/L (12-78) Alkaline Phosphatase 52 U/L (50-136) Troponin I High Sensitivity 131 ng/L (0-75) 116 ng/L (0-75) Total Protein 6.3 g/dL (6.4-8.2) Albumin 2.1 g/dL (3.4-5.0) Globulin 4.2 Albumin/Globulin Ratio 0.500 Bedside Glucose 266 (70-110) 327 (70-110) Test 09/12/21 21:28 09/13/21 05:25 09/13/21 07:36 Bedside Glucose 390 (70-110) 307 (70 - 110) White Blood Count 4.5 10^3/uL (4.5-11.0) Red Blood Count 4.58 10^6/uL (4.50-5.90) Hemoglobin 12.9 g/dL (13.9-16.3) Hematocrit 40.4 % (37.0-53.0) Mean Corpuscular Volume 88.2 fL (78-100) Mean Corpuscular Hemoglobin 28.2 pg (26-34) Mean Corpuscular Hemoglobin Concent 31.9 g/dL (33-36.5) Red Cell Distribution Width 15.7 % (11.5-14.5) Platelet Count 165 10^3/uL (150-400) Mean Platelet Volume 10.4 fL (7.8-11.0) Neutrophils (%) (Auto) 84.3 % (41.0-85.0) Lymphocytes (%) (Auto) 8.3 % (24.0-44.0) Monocytes (%) (Auto) 6.5 % (5.0-12.0) Neutrophils # (Auto) 3.8 10^3/uL (1.8-7.7) Lymphocytes # (Auto) 0.37 10^3/uL1 (1.0-4.8) Monocytes # (Auto) 0.3 10^3/uL (0.3-0.8) Absolute Immature Granulocyte (auto 0.03 10^3 u/L (0-2) Absolute Eosinophils (auto) 0.0 10^3/uL (0.0-0.2) Immature Granulocytes % 0.70 % (0.00-0.50) Eosinophils % 0.0 % (0.0-5.0) Basophils % 0.2 % (0.0-0.2) Basophils # 0.0 10^3/uL (0.0-0.1) Sodium Level 135 mmol/L (132-145) Potassium Level 4.0 mmol/L (3.6-5.2) Chloride Level 99.0 mmol/L (96-109) Carbon Dioxide Level 28.9 mmol/L (20.0-32) Anion Gap 11.1 Blood Urea Nitrogen 25 mg/dL (7-18) Creatinine 1.24 mg/dL (0.59-1.40) Estimated GFR () 70.8 (>/=60) Est GFR (CKD-EPI)(Non-Afr Cambodian) 58.5 (>/=60) BUN/Creatinine Ratio 20.0 Glucose Level 333 mg/dL (70-110) Calcium Level 9.1 mg/dL (8.4-10.5) Total Bilirubin 1.0 mg/dL (0.2-1.0) Aspartate Amino Transf (AST/SGOT) 55 U/L (0-35) Alanine Aminotransferase (ALT/SGPT) 31 U/L (12-78) Alkaline Phosphatase 60 U/L (50-136) Total Protein 6.5 g/dL (6.4-8.2) Albumin 2.1 g/dL (3.4-5.0) Globulin 4.4 Albumin/Globulin Ratio 0.477 Procalcitonin 0.58 ng/mL (0.05-0.5) VTE VTE Risk Total Score: >5 VTE Risk Score VTE Risk: Score 0-1 = Low Risk (Aggressive mobilization; early ambulation; no VTE prophylaxis required) Score 2: Moderate Risk (Intermittent/Pneumatic Compression Device OR Lovenox/Heparin/Coumadin) Score 3-4: High Risk (Intermittent/Pneumatic Compression Device AND Lovenox/Heparin/Coumadin) Score > or =5: Highest Risk (Intermittent/Pneumatic Compression Device AND Lovenox/Heparin/Coumadin) Antico:Hep/LMWH/Coum/Xarelto: Yes Mechanical device ordered: Yes VTE VTE Present on Admission: Yes Currently receiving anticoagul: Yes VTE Risk Total Score: >5 Antico:Hep/LMWH/Coum/Xarelto: Yes Mechanical device ordered: Yes Assessment/Plan Assessment/Plan Assessment/Plan Plan: 1. Titrate FiO2 to maintain oxygen saturation 92 to 96% 2. Continue Decadron and remdesivir 3. Maintain negative fluid balance 4. Continue Tamiflu for influenza 5. We will increase Lantus to 10 units subcu twice a day 6. Increase insulin sliding scale aggressiveness to maintain glucose less than 180 7. DVT and GI prophylaxis Video assessment was performed using HIPAA compliant technology Critical care time 60 minutes MABLE BARROW MD Sep 13, 2021 10:38
--- NOTE | 2021-09-13 12:13 | NUR ---
DISCHARGE PLAN CM VISITED WITH PATIENT REGARDING D/C PLAN AND PATIENT LIVES AT HOME ALONE IN [place]. HE SAID HE IS VERY IND OF ADLS AND WORKS DAILY. HE DENIED USE OF ANY DME IN THE HOME. HE SAID THAT HIS FRIEND CHLOE HARPERLISTER IS TO MAKE ALL MEDICAL DECISIONS IF HE BECOMES UNABLE TO MAKE DECISIONS. PER PATIENT HE WANTS TO BE A DNI BUT A FULL CODE STATUS. HE STATED HE HAS 2 CHILDREN AND HE DOES NOT HAVE A GOOD RELATIONSHIP WITH THEM AT THE MOMENT, HE DID NOT PROVIDE THEIR NAMES OR CONTACT INFORMATION. PER THE PATIENT HE DOES NOT WANT EITHER OF THEM MAKING DECISIONS ON HIS BEHALF. HE REQUESTED MPOA PAPERWORK AND CM PROVIDED PAPER WORK TO [employer] TO GIVE TO PT AND CHLOE HIS FRIEND. DISCHARGE PLAN IS FOR PATIENT TO D/C BACK HOME TO ROUTINE CARE BUT CM WILL CONTINUE TO MONITOR D/C PLANNING NEEDS.
--- NOTE | 2021-09-13 16:54 | NUR ---
CODE STATUS/mPOA DESIGNATION PENDING @ 1630 RN MET WITH PT AND PT "FRIEND" CHLOE AT BEDSIDE TO PROVIDE mPOA PAPER WORK; RN WAS INFORMED BY CM THAT PT HAD A CONVERSATION EARLIER TODAY WITH CM REGARDING WISHES TO DESIGNATE HIS FRIEND CHLOE HIS mPOA AND DOES NOT WISH FOR HIS CHILDREN TO BE ABLE TO MAKE DECISIONS ON HIS BEHALF IF HE WERE UNABLE TO DO SO. PT CONFIRMED TO RN THAT HE WOULD LIKE CHLOE TO MAKE DECISIONS ON HIS BEHALF IF HE WAS UNABLE TO DO SO; AND PT ALSO STATED TO RN HE HAS CHILDREN BUT HE DOES NOT WANT THEM TO MAKE DECISIONS ON HIS BEHALF IF HE IS UNABLE TO. RN EXPLAINED PT IS CURRENTLY A DNI AND DISCUSSED IMPORTANCE FOR HIM AND CHLOE TO HAVE A CONVERSATION REGARDING HIS WISHES IF SHE IS GOING TO BE DESIGNATED mPOA. RN EDUCATED PT ON FULL CODE VERSUS DNI. AFTER THROUGHOUT CONVERSATION, PT WOULD LIKE TO CHANGE HIS STATUS FROM DNI TO FULL CODE. PT STATED HE WILL HAVE AN AT LENGTH DISCUSSION WITH FRIEND CHLOE AND WILL PLAN TO FILL OUT mPOA PAPERWORK WITH CM ASSISTANCE TOMORROW WHEN NOTARY IS AVAILABLE. DR FUENTES, HOSPITALIST, INFORMED IMMEDIATELY AND WILL SPEAK WITH PT AT BEDSIDE GIO IN REGARDS TO CHANGING CODE STATUS FROM DNI TO FULL CODE.
[2021-09-13] MEDS ORDERED: HUMALOG SQ ONE (22:22)
[2021-09-13] MEDS ORDERED: LANTUS SQ ONE (22:29)
[2021-09-13] MEDS: LOVENOX SQ SCH (22:35)
[2021-09-13] MEDS: REMDESIVIR (EUA) 100 MG in NS 100ML 100 ML IV SCH (22:36)
[2021-09-13] MEDS: MELATONIN PO PRN (22:37)
[2021-09-14] VITALS (17 sets, daily range): BP systolic 111–146; BP diastolic 69–100
[2021-09-14 04:44] LABS: BASOPHIL % 0.2 % (0.0-0.2); LYMPHOCYTES % 9.6 % (24.0-44.0); MEAN CORP HGB 28.3 pg (26-34); MONOCYTES # 0.4 10^3/uL (0.3-0.8); MONOCYTES % 6.7 % (5.0-12.0); NEUTROPHIL # 5.2 10^3/uL (1.8-7.7); NEUTROPHILS % 83.5 % (41.0-85.0); PLATELET COUNT 190 10^3/uL (150-400); RED CELL DISTRIBUTION WIDTH 15.6 % (11.5-14.5)
[2021-09-14 04:47] LABS: CARBON DIOXIDE 29.4 mmol/L (20.0-32)
[2021-09-14] MEDS: TAMIFLU PO SCH ×2 (08:38→22:57)
[2021-09-14] MEDS: DEXAMETHASONE 10 MG/ML VIAL IV SCH (08:38)
[2021-09-14] MEDS: VITAMIN C PO SCH ×2 (08:39→22:57)
[2021-09-14] MEDS: ASPIRIN EC PO SCH (08:39)
[2021-09-14] MEDS: ZINC SULFATE PO SCH (08:39)
[2021-09-14] MEDS: VITAMIN D PO SCH (08:39)
[2021-09-14] MEDS: PEPCID IV SCH ×2 (08:39→22:57)
[2021-09-14] MEDS: HUMALOG SQ SCH ×4 (08:41→20:00)
[2021-09-14] MEDS: LANTUS SQ SCH ×2 (08:42→21:00)
--- NOTE | 2021-09-14 12:06 | PRM.PN ---
Subjective Subjective Date: Sep 14, 2021 Time: 09:00 Subjective Still shortness of breath with any minimal exertion. Currently on high flow nasal cannula 30/70. Using incentive spirometry. Encouraging proning. VTE VTE Risk Total Score: >5 VTE Risk Score VTE Risk: Score 0-1 = Low Risk (Aggressive mobilization; early ambulation; no VTE prophylaxis required) Score 2: Moderate Risk (Intermittent/Pneumatic Compression Device OR Lovenox/Heparin/Coumadin) Score 3-4: High Risk (Intermittent/Pneumatic Compression Device AND Lovenox/Heparin/Coumadin) Score > or =5: Highest Risk (Intermittent/Pneumatic Compression Device AND Lovenox/Heparin/Coumadin) Antico:Hep/LMWH/Coum/Xarelto: Yes Mechanical device ordered: Yes Review of Systems Constitutional: Weakness; No: Fever, Chills, Sweats, Malaise, Other Eyes: No: Pain, Vision change, Conjunctivae inflammation, Eyelid inflammation, Other, Redness ENT: No: Ear pain, Ear discharge, Nose pain, Nose discharge, Nose congestion, Mouth pain, Mouth swelling, Throat pain, Throat swelling, Other Respiratory: Cough, Shortness of breath, SOB with excertion Cardiovascular: No: Chest Pain Gastrointestinal: No: Nausea, Vomiting, Abdominal Pain, Diarrhea, Constipation, Melena, Hematochezia, Other Genitourinary: No Dysuria, No Frequency, No Incontinence, No Hematuria, No Retention, No Other Musculoskeletal: No: other, neck pain, shoulder pain, arm pain, back pain, hand pain, leg pain, foot pain Skin: No: Rash, Lesions, Jaundice, Bruising, Other Neurological: Weakness; No: Numbness, Incoordination, Change in speech, Confusion, Seizures, Other Objective Vitals and I/O Vital Sign - Last 24 Hours 09/13/21 09/13/21 09/13/21 09/13/21 12:10 12:25 12:28 12:40 Pulse 66 89 65 69 Resp 15 19 22 24 B/P (MAP) 134/90 (105) 130/73 (92) Pulse Ox 97 95 93 95 O2 Delivery Comfort Flow Comfort Casey O2 Flow Rate 30.00 30.00 FiO2 70 09/13/21 09/13/21 09/13/21 09/13/21 12:42 12:55 13:10 13:25 Pulse 78 72 72 75 Resp 43 17 16 17 B/P (MAP) 121/96 (104) 118/73 (88) 125/81 (96) Pulse Ox 97 93 95 92 09/13/21 09/13/21 09/13/21 09/13/21 13:40 14:07 14:07 14:10 Pulse 75 75 75 73 Resp 24 39 20 23 B/P (MAP) 135/80 (98) 141/88 (105) 141/88 (105) Pulse Ox 88 88 88 88 O2 Delivery Comfort Flow O2 Flow Rate 30.00 09/13/21 09/13/21 09/13/21 09/13/21 14:22 14:22 14:37 14:37 Pulse 70 70 80 80 Resp 19 19 27 27 B/P (MAP) 131/85 (100) 131/85 (100) 124/92 (103) 124/92 (103) Pulse Ox 91 91 90 90 09/13/21 09/13/21 09/13/21 09/13/21 14:52 14:52 15:07 15:23 Pulse 62 62 64 70 Resp 24 24 23 22 B/P (MAP) 134/90 (105) 134/90 (105) 137/81 (99) 130/86 (101) Pulse Ox 98 98 99 93 O2 Delivery Comfort Flow O2 Flow Rate 30.00 09/13/21 09/13/21 09/13/21 09/13/21 15:37 15:40 15:52 16:07 Temp 98.2 Pulse 62 63 66 Resp 21 21 22 B/P (MAP) 136/89 (105) 137/86 (103) 131/91 (104) Pulse Ox 99 95 96 O2 Delivery Comfort Casey O2 Flow Rate 30.00 09/13/21 09/13/21 09/13/21 09/13/21 16:13 16:22 16:52 17:07 Pulse 68 66 68 75 Resp 22 21 19 14 B/P (MAP) 129/82 (98) 140/85 (103) 148/74 (98) Pulse Ox 95 97 93 94 O2 Delivery Comfort Casey Comfort Flow O2 Flow Rate 30.00 30.00 FiO2 70 09/13/21 09/13/21 09/13/21 09/13/21 17:23 17:37 17:52 18:07 Pulse 70 64 67 65 Resp 21 17 15 19 B/P (MAP) 138/84 (102) 121/78 (92) 129/64 (85) 124/96 (105) Pulse Ox 95 91 93 94 09/13/21 09/13/21 09/13/21 09/13/21 18:22 18:39 19:00 19:07 Pulse 67 65 71 73 Resp 25 22 17 25 B/P (MAP) 139/92 (108) 132/76 (94) Pulse Ox 94 91 94 90 O2 Delivery Comfort Flow O2 Flow Rate 30.00 09/13/21 09/13/21 09/13/21 09/13/21 19:15 19:22 19:30 19:39 Pulse 79 74 82 85 Resp 20 17 22 B/P (MAP) 118/58 (78) Pulse Ox 87 92 91 85 09/13/21 09/13/21 09/13/21 09/13/21 19:45 19:48 19:53 20:00 Pulse 78 77 87 72 Resp 33 17 19 19 B/P (MAP) 134/76 (95) 158/90 (112) Pulse Ox 96 85 78 94 09/13/21 09/13/21 09/13/21 09/13/21 20:00 20:10 20:15 20:30 Pulse 77 77 77 Resp 18 23 25 Pulse Ox 89 87 89 O2 Delivery Comfort Casey O2 Flow Rate 30.00 09/13/21 09/13/21 09/13/21 09/13/21 20:45 20:59 21:00 21:15 Pulse 76 70 74 78 Resp 19 22 39 18 Pulse Ox 93 89 96 94 O2 Delivery Comfort Casey O2 Flow Rate 30.00 FiO2 70 09/13/21 09/13/21 09/13/21 09/13/21 21:30 21:45 22:00 22:15 Pulse 91 78 62 72 Resp 107 36 22 22 Pulse Ox 84 96 97 09/13/21 09/13/21 09/13/21 09/13/21 22:30 22:45 23:00 23:15 Pulse 59 62 62 66 Resp 19 23 15 Pulse Ox 98 95 95 96 09/13/21 09/13/21 09/14/21 09/14/21 23:30 23:45 00:00 00:01 Pulse 71 62 58 Resp 49 21 Pulse Ox 94 87 96 O2 Delivery Comfort Casey O2 Flow Rate 30.00 09/14/21 09/14/21 09/14/21 09/14/21 00:15 00:30 00:45 01:00 Pulse 53 56 66 60 Resp 21 25 18 Pulse Ox 97 90 89 89 09/14/21 09/14/21 09/14/21 09/14/21 01:15 01:30 01:45 02:00 Pulse 55 52 58 57 Resp 19 17 Pulse Ox 93 92 93 91 09/14/21 09/14/21 09/14/21 09/14/21 02:13 02:15 02:30 02:45 Pulse 56 54 68 52 Resp 19 14 23 22 B/P (MAP) 137/88 (104) Pulse Ox 92 93 89 87 09/14/21 09/14/21 09/14/21 09/14/21 03:00 03:15 03:30 03:45 Pulse 51 53 51 52 Resp 17 16 14 9 Pulse Ox 90 91 91 91 09/14/21 09/14/21 09/14/21 09/14/21 04:00 04:00 04:15 04:30 Pulse 63 50 52 Pulse Ox 87 92 93 O2 Delivery Comfort Casey O2 Flow Rate 30.00 09/14/21 09/14/21 09/14/21 09/14/21 04:32 04:45 05:00 05:15 Pulse 56 50 53 63 Resp 64 B/P (MAP) 146/83 (104) Pulse Ox 93 92 89 88 09/14/21 09/14/21 09/14/21 09/14/21 05:30 05:45 06:00 06:15 Pulse 53 48 47 Resp 17 18 13 B/P (MAP) 126/77 (93) Pulse Ox 86 96 95 98 09/14/21 09/14/21 09/14/21 09/14/21 06:30 06:45 07:00 07:00 Temp 98.6 Pulse 46 45 48 Resp 17 15 17 Pulse Ox 99 98 99 09/14/21 09/14/21 09/14/21 09/14/21 07:15 07:30 07:38 07:45 Pulse 44 47 68 48 Resp 17 15 20 17 B/P (MAP) 125/69 (87) Pulse Ox 99 100 98 100 O2 Delivery Comfort Casey O2 Flow Rate 30.00 FiO2 70 09/14/21 09/14/21 09/14/21 2/8/22 08:00 08:03 08:15 08:30 Pulse 65 61 66 Resp 20 16 10 B/P (MAP) 128/80 (96) Pulse Ox 98 99 95 O2 Delivery Comfort Casey O2 Flow Rate 30.00 09/14/21 09/14/21 09/14/21 09/14/21 08:45 08:45 09:00 09:15 Pulse 75 77 72 Resp 14 18 B/P (MAP) 122/71 (88) Pulse Ox 93 97 95 O2 Flow Rate 30.00 FiO2 60 09/14/21 09/14/21 09/14/21 09/14/21 09:30 09:45 10:00 10:00 Pulse 75 74 65 Resp 17 13 17 Pulse Ox 91 96 97 98 O2 Flow Rate 25.00 FiO2 60 09/14/21 09/14/21 10:15 11:38 Pulse 57 62 Resp 24 22 B/P (MAP) 129/85 (100) Pulse Ox 100 96 O2 Delivery Comfort Casey O2 Flow Rate 25.00 FiO2 60 Intake and Output 09/14/21 07:00 Intake Total 940 ml Output Total 750 ml Balance 190 ml General: Alert, Oriented X3, Cooperative, No acute distress, Other (Sitting upright on comfort flow) HEENT: Atraumatic, PERRLA Neck: Supple, No JVD Lungs: Other (Mildly coarse breath sounds throughout) Heart: Regular rate, Normal S1, Normal S2, No murmurs Abdomen: Normal bowel sounds, Soft, No tenderness, No masses Extremities: No clubbing, No cyanosis, No edema, Normal pulses, No tenderness/swelling Skin: No rashes, No breakdown, No significant lesion Neuro: Normal gait, Normal speech, Strength at 5/5 X4 ext, Normal tone, Se nsation intact Psych/Mental Status: Mental status NL, Mood NL All Results(Lab/Rad) Current Medications Medications (Trade) Dose Ordered Sig/Gabo Route PRN Reason Start Time Stop Time Status Last Admin Dose Admin Remdesivir 200 mg/ Sodium Chloride 140 ml @ 120.69 mls/ hr OT STAT IV 09/11/21 20:30 09/11/21 21:39 UNV 09/11/21 21:00 Remdesivir 100 mg/ Sodium Chloride 120 ml @ 111.111 mls/hr Q24HRS IV 09/12/21 20:30 09/16/21 00:00 UNV Enoxaparin Sodium (Lovenox) 40 mg Q24HRS SQ 09/11/21 20:30 10/11/21 20:29 09/11/21 21:00 Dextrose (Dextrose 50%-Water Syringe) 25 ml STAT PRN IV HYPOGLYCEMIA 09/11/21 20:30 10/11/21 20:29 Sodium Chloride 100 ml @ ud STK-MED ONCE IV 09/11/21 21:29 09/11/21 21:30 DC Sodium Chloride 250 ml @ ud STK-MED ONCE .ROUTE 09/11/21 21:49 09/11/21 21:50 DC Assessment/Plan Assessment/Plan Assessment/Plan 66-year-old male with previous history of diabetes mellitus hypertension, dyslipidemia, previous Covid infection presented with recurrent COVID-19 infection and influenza B with severe hypoxemic respiratory failure, he is unvaccinated. CTA at OSH negative for PE ASSESSMENT/PLAN: Acute hypoxemic respiratory failure Covid SARS 2 infection Obesity Diabetes mellitus type 2 hgb A1c 10 indicated chronic poor control Hypertension History of dyslipidemia Influenza B positive OSH troponin mildly elevated initial trop 131 here trending down no clear acute ischemic changes on EKG received ASA remdesivir, oseltamivir, dexamethasone insulin Lovenox high flow oxygen by nasal cannula PPX, pepcid, SCDs Enoxaparin Critical Care Recommendations 1. Titrate FiO2 to maintain oxygen saturation 92 to 96% 2. Continue Decadron and remdesivir 3. Maintain negative fluid balance 4. Continue Tamiflu for influenza 5. Lantus subcu twice a day 6. Increase insulin sliding scale aggressiveness to maintain glucose less than 180 7. DVT and GI prophylaxis FULL CODE Patient presenting with potentially life-threatening condition, critical care time spent spent examining the patient, reviewing labs, images, discussing the case with WEB DATABASE DEVELOPER, respiratory therapist, documentation 35 minutes. SWATI VASQUEZ MD Sep 14, 2021 12:06
[2021-09-14] MEDS ORDERED: LANTUS SQ STA (12:46)
[2021-09-14] MEDS ORDERED: LANTUS SQ ONE (13:30)
--- NOTE | 2021-09-14 13:54 | PRM.PN ---
Assessment & Plan Provider Note: Tele-ICU Progress Note Brief Summary: 66 y/o man transfer from [facility] admitted w/ respiratory failure with covid19 and influenza B infections. Patient is not vaccinated for either. He is doing well on HFNC. O: Vitals reviewed. Gen appearance: lying in bed comfortably on HFNC See Nurse physical bedside exam Labs and imaging reviewed Impression/Problem list: Acute respiratory failure Influenza B Covid19 pneumonia Plan: Immediate nursing concerns addressed: can he be transferred Drips: none #Neuro-mental status at baseline #CVS-not on pressors # Pulm- found on HFNC 25L/60% adjust to 30L/30% if able to tolerate then do 6LNC. Goal O2sat 92% #GI- diet as tolerated #Endo- hyperglycemia- increase Lantus 20 units bid w/ stat lantus 10 now and increase sliding scale q4H. spoke to pharmacy. If no improvement w/ FS 300 for 3+ read then start insulin drip #Renal. Monitor u/o and Scr. Replete electrolytes as needed #Heme/onc-monitor H&H and transfuse if Hbg <7. #ID-panculture if febrile. c/w dexa and remdesivir for covid and Tamiflu for flu A. of note, since pt was a transfer these test results are in paper chart. I confirmed w/ patients nurse. GI ppx- famotidine DVT treatment-Lovenox I discussed patient with MANAGER LAN and I saw this patient and completed a full visual exam via audio-visual HIPAA compliant technology Prognosis: guarded. hold transfer until FS better controlled. high risk for DKA Tele-ICU ccm time: 60 min RANDOLPH OTTO MD Sep 14, 2021 13:54
--- NOTE | 2021-09-14 19:10 | NUR ---
Received verbal report from outgoing nurse. Pt arrival noted as 1823. Full admit package started. Assumed care of pt with care plan TBD based on admit assessment. Addendum: 09/15/21 at 0104 by NIURKA MIJARES RN, RAVI VALDES Wrong pt please disregard.
[2021-09-14] MEDS: MELATONIN PO PRN (22:57)
[2021-09-14] MEDS: LOVENOX SQ SCH (22:57)
[2021-09-14] MEDS: REMDESIVIR (EUA) 100 MG in NS 100ML 100 ML IV SCH (23:08)
[2021-09-15] VITALS (13 sets, daily range): BP systolic 122–147; BP diastolic 53–95
--- NOTE | 2021-09-15 00:30 | NUR ---
Noted pt HR of 36 sinus aneehs. Informed Charge Nurse and call Dr Lozoya to update on pt status. Pt sleeping and when awoken pt denies any systoms and no second or third degree block evident. Received full cardiac work up ( labs) +with stat EKG ordered and printed. EKG flagged on chart and is consistent with prior reading of sinus aneesh.
[2021-09-15] MEDS ORDERED: ATROPINE SULFATE IV STA (00:38)
[2021-09-15 07:50] LABS: EOSINOPHIL % 0.2 % (0.0-5.0); LYMPHOCYTES # 0.83 10^3/uL1 (1.0-4.8); LYMPHOCYTES % 13.7 % (24.0-44.0); MEAN CORP HGB 28.5 pg (26-34); MONOCYTES # 0.5 10^3/uL (0.3-0.8); MONOCYTES % 8.6 % (5.0-12.0); NEUTROPHIL # 4.7 10^3/uL (1.8-7.7); NEUTROPHILS % 77.5 % (41.0-85.0); PLATELET COUNT 189 10^3/uL (150-400); RED CELL DISTRIBUTION WIDTH 15.7 % (11.5-14.5)
[2021-09-15 07:58] LABS: CARBON DIOXIDE 31.4 mmol/L (20.0-32)
[2021-09-15] MEDS: HUMALOG SQ SCH ×5 (08:00→23:57)
--- NOTE | 2021-09-15 08:30 | PCM.EKG ---
[facility] Test Date: 2021-09-15 Test Time: 00:26:37 Pat Name: LEEANNE RUVALCABA Department: Room: ICU7 A Gender: M Admissions Evaluator: : [id number] Requested By: HILL LAWRENCE Order Number: [id number] Reading MD: Measurements Intervals Asher Rate: 48 P: 22 [place]: 179 QRS: -43 QRSD: 118 T: -16 QT: 517 QTc: 462 Interpretive Statements Sinus bradycardia Nonspecific IVCD with LAD Borderline T abnormalities, inferior leads Compared to ECG 09/12/2021 17:59:44 Intraventricular conduction delay now present Sinus rhythm no longer present Left ventricular hypertrophy no longer present Left anterior fascicular block no longer present T-wave abnormality still present Please click the below link to view image of tracing.
[2021-09-15] MEDS: ASPIRIN EC PO SCH (09:00)
[2021-09-15] MEDS: ZINC SULFATE PO SCH (09:00)
[2021-09-15] MEDS: TAMIFLU PO SCH ×2 (09:00→20:52)
[2021-09-15] MEDS: VITAMIN D PO SCH (09:00)
[2021-09-15] MEDS: LANTUS SQ SCH ×2 (09:00→20:51)
[2021-09-15] MEDS: DEXAMETHASONE 10 MG/ML VIAL IV SCH (09:00)
[2021-09-15] MEDS: VITAMIN C PO SCH ×2 (09:00→20:52)
[2021-09-15] MEDS: PEPCID IV SCH ×2 (09:00→20:52)
--- NOTE | 2021-09-15 11:12 | PRM.PN ---
Subjective Subjective Date: Sep 15, 2021 Time: 09:00 Subjective Patient is feeling better this morning. Shortness of breath improving. Patient had an episode of bradycardia through the night. Asymptomatic.Currently on 40% FiO2. VTE VTE Risk Total Score: >5 VTE Risk Score VTE Risk: Score 0-1 = Low Risk (Aggressive mobilization; early ambulation; no VTE prophylaxis required) Score 2: Moderate Risk (Intermittent/Pneumatic Compression Device OR Lovenox/Heparin/Coumadin) Score 3-4: High Risk (Intermittent/Pneumatic Compression Device AND Lovenox/Heparin/Coumadin) Score > or =5: Highest Risk (Intermittent/Pneumatic Compression Device AND Lovenox/Heparin/Coumadin) Antico:Hep/LMWH/Coum/Xarelto: Yes Mechanical device ordered: Yes Review of Systems Constitutional: Weakness; No: Fever, Chills, Sweats, Malaise, Other Eyes: No: Pain, Vision change, Conjunctivae inflammation, Eyelid inflammation, Other, Redness ENT: No: Ear pain, Ear discharge, Nose pain, Nose discharge, Nose congestion, Mouth pain, Mouth swelling, Throat pain, Throat swelling, Other Respiratory: Cough, Shortness of breath, SOB with excertion Cardiovascular: No: Chest Pain Gastrointestinal: No: Nausea, Vomiting, Abdominal Pain, Diarrhea, Constipation, Melena, Hematochezia, Other Genitourinary: No Dysuria, No Frequency, No Incontinence, No Hematuria, No Retention, No Other Musculoskeletal: No: other, neck pain, shoulder pain, arm pain, back pain, hand pain, leg pain, foot pain Skin: No: Rash, Lesions, Jaundice, Bruising, Other Neurological: Weakness; No: Numbness, Incoordination, Change in speech, Confusion, Seizures, Other Allergies: Coded Allergies: No Known Allergies (Unverified , 09/15/21) Objective Vitals and I/O Vital Sign - Last 24 Hours 09/14/21 09/14/21 09/14/21 09/14/21 11:15 11:30 11:38 11:45 Pulse 64 65 62 66 Resp 26 B/P (MAP) 133/89 (104) Pulse Ox 95 96 96 94 O2 Delivery Comfort Casey O2 Flow Rate 25.00 FiO2 60 09/14/21 09/14/21 09/14/21 09/14/21 12:00 12:00 12:15 12:30 Pulse 70 53 49 Resp 23 12 19 B/P (MAP) 128/82 (97) Pulse Ox 96 96 97 O2 Delivery Comfort Casey O2 Flow Rate 30.00 09/14/21 09/14/21 09/14/21 09/14/21 12:45 13:00 13:00 13:15 Temp 98.2 Pulse 48 56 74 Resp 17 24 B/P (MAP) 121/91 (101) Pulse Ox 98 100 96 09/14/21 09/14/21 09/14/21 09/14/21 13:30 13:45 13:45 14:00 Pulse 73 68 68 66 Resp 21 21 20 16 Pulse Ox 96 92 100 93 O2 Delivery Comfort Casey O2 Flow Rate 20.00 FiO2 60 09/14/21 09/14/21 09/14/21 09/14/21 14:15 14:30 14:45 15:00 Temp 98.6 Pulse 71 71 69 Resp 21 22 B/P (MAP) 119/81 (94) Pulse Ox 97 89 96 09/14/21 09/14/21 09/14/21 09/14/21 15:00 15:15 15:30 15:44 Pulse 81 70 77 Resp 54 19 20 B/P (MAP) 114/69 (84) Pulse Ox 94 97 99 O2 Delivery Comfort Casey O2 Flow Rate 30.00 09/14/21 09/14/21 09/14/21 09/14/21 15:45 16:00 16:16 17:00 Temp 98.3 Pulse 74 71 68 Resp 23 22 Pulse Ox 98 97 94 O2 Delivery Nasal Cannula O2 Flow Rate 5.00 FiO2 40 09/14/21 09/14/21 09/14/21 09/14/21 17:15 17:16 17:30 17:45 Pulse 53 51 50 81 Resp 18 24 17 34 B/P (MAP) 145/100 (115) Pulse Ox 93 95 91 91 09/14/21 09/14/21 09/14/21 09/14/21 18:00 18:15 18:17 18:30 Temp 98.1 Pulse 73 63 58 59 Resp 11 14 20 Pulse Ox 94 92 93 94 09/14/21 09/14/21 09/14/21 09/14/21 18:37 19:00 19:15 19:30 Temp 98.0 Pulse 56 55 58 Resp 20 24 23 22 B/P (MAP) 127/72 (90) Pulse Ox 94 92 93 94 09/14/21 09/14/21 09/14/21 09/14/21 19:45 20:00 20:00 20:15 Pulse 50 48 48 Resp 22 21 B/P (MAP) 138/79 (98) Pulse Ox 94 97 95 O2 Delivery Comfort Casey O2 Flow Rate 30.00 09/14/21 09/14/21 09/14/21 09/14/21 20:30 20:45 21:00 21:10 Pulse 70 73 59 51 Resp 15 15 19 20 Pulse Ox 95 95 95 94 O2 Delivery Nasal Cannula O2 Flow Rate 4.00 09/14/21 09/14/21 09/14/21 09/14/21 21:45 22:00 22:15 22:30 Pulse 55 56 44 Resp 20 20 B/P (MAP) 111/69 (83) Pulse Ox 93 94 95 94 09/14/21 09/14/21 09/14/21 09/14/21 22:45 23:00 23:15 23:30 Pulse 73 Resp 41 B/P (MAP) 135/69 (91) Pulse Ox 94 94 95 90 09/14/21 09/15/21 09/15/21 09/15/21 23:45 00:00 00:01 00:15 Temp 98.1 Pulse 58 43 Resp 8 5 B/P (MAP) 146/81 (102) Pulse Ox 92 93 95 O2 Delivery Comfort Casey O2 Flow Rate 30.00 09/15/21 09/15/21 09/15/21 09/15/21 00:30 00:45 01:00 01:15 Pulse 50 49 44 Resp 16 19 B/P (MAP) 139/70 (93) Pulse Ox 94 95 93 93 09/15/21 09/15/21 09/15/21 09/15/21 01:30 01:45 02:00 02:15 Pulse 48 57 64 50 Resp 22 6 22 18 Pulse Ox 95 92 87 90 09/15/21 09/15/21 09/15/21 09/15/21 02:17 02:30 02:45 03:00 Pulse 46 42 42 44 Resp 12 16 Pulse Ox 90 97 96 94 09/15/21 09/15/21 09/15/21 09/15/21 03:15 03:17 03:30 03:45 Pulse 43 48 44 43 Resp 20 18 17 Pulse Ox 97 94 91 92 09/15/21 09/15/21 09/15/21 09/15/21 04:00 04:00 04:15 04:17 Pulse 43 41 46 Resp 19 19 21 Pulse Ox 94 94 92 O2 Delivery Comfort Casey O2 Flow Rate 30.00 09/15/21 09/15/21 09/15/21 09/15/21 04:30 04:45 05:00 05:04 Pulse 40 43 52 Resp 17 17 B/P (MAP) 128/76 (93) Pulse Ox 92 91 90 86 09/15/21 09/15/21 09/15/21 05:14 05:15 05:30 Pulse 63 63 49 Resp 10 11 B/P (MAP) 143/94 (110) Pulse Ox 91 91 93 Intake and Output 09/15/21 07:00 Intake Total 850 ml Output Total 1100 ml Balance -250 ml General: Alert, Oriented X3, Cooperative, No acute distress, Other (Sitting upright on comfort flow) HEENT: Atraumatic, PERRLA Neck: Supple, No JVD Lungs: Other (Mildly coarse breath sounds throughout) Heart: Regular rate, Normal S1, Normal S2, No murmurs Abdomen: Normal bowel sounds, Soft, No tenderness, No masses Extremities: No clubbing, No cyanosis, No edema, Normal pulses, No tenderness/swelling Skin: No rashes, No breakdown, No significant lesion Neuro: Normal gait, Normal speech, Strength at 5/5 X4 ext, Normal tone, Sensation intact Psych/Mental Status: Mental status NL, Mood NL All Results(Lab/Rad) Current Medications Medications (Trade) Dose Ordered Sig/Gabo Route PRN Reason Start Time Stop Time Status Last Admin Dose Admin Remdesivir 200 mg/ Sodium Chloride 140 ml @ 120.69 mls/ hr OT STAT IV 09/11/21 20:30 09/11/21 21:39 UNV 09/11/21 21:00 Remdesivir 100 mg/ Sodium Chloride 120 ml @ 111.111 mls/hr Q24HRS IV 09/12/21 20:30 09/16/21 00:00 UNV Enoxaparin Sodium (Lovenox) 40 mg Q24HRS SQ 09/11/21 20:30 10/11/21 20:29 09/11/21 21:00 Dextrose (Dextrose 50%-Water Syringe) 25 ml STAT PRN IV HYPOGLYCEMIA 09/11/21 20:30 10/11/21 20:29 Sodium Chloride 100 ml @ ud STK-MED ONCE IV 09/11/21 21:29 09/11/21 21:30 DC Sodium Chloride 250 ml @ ud STK-MED ONCE .ROUTE 09/11/21 21:49 09/11/21 21:50 DC Assessment/Plan Assessment/Plan Assessment/Plan 66-year-old male with previous history of diabetes mellitus hypertension, dyslipidemia, previous Covid infection presented with recurrent COVID-19 infection and influenza B with severe hypoxemic respiratory failure, he is unvaccinated. CTA at OSH negative for PE ASSESSMENT/PLAN: Acute hypoxemic respiratory failure Covid SARS 2 infection Obesity Diabetes mellitus type 2 hgb A1c 10 indicated chronic poor control Hypertension History of dyslipidemia Influenza B positive OSH troponin mildly elevated initial trop 131 here trending down no clear acute ischemic changes on EKG received ASA remdesivir, oseltamivir, dexamethasone insulin Lovenox high flow oxygen by nasal cannula PPX, pepcid, SCDs Enoxaparin Critical Care Recommendations 1. Titrate FiO2 to maintain oxygen saturation 92 to 96% 2. Continue Decadron and remdesivir 3. Maintain negative fluid balance 4. Continue Tamiflu for influenza 5. Lantus subcu twice a day 6. Increase insulin sliding scale aggressiveness to maintain glucose less than 180 7. DVT and GI prophylaxis Overall patient is improving. We will transfer the patient to telemetry floor. FULL CODE Patient presenting with potentially life-threatening condition, critical care time spent spent examining the patient, reviewing labs, images, discussing the case with [facility], respiratory therapist, documentation 35 minutes. SWATI VASQUEZ MD Sep 15, 2021 11:12
--- NOTE | 2021-09-15 13:20 | NUR ---
[address] [facility] room 313 via wheelchair, on nasal cannula @ 5 lpm. VS stable. Personal belongings sent with patient. Report given to Pretty VALDES.
--- NOTE | 2021-09-15 13:30 | NUR ---
Transfer Transferred from ICU 7 to [facility] Surg room 31 via wheel chair. Awake, alert, oriented x4. TRansferred from wheel chair to bed without assistance and without difficulty. states hes feeling much better. Oxygen in place @ 5 liters via NC. Oriented to room and discussed plan of care. Aster needs questions or concerns. No s/s of acute distress noted.
[2021-09-15] MEDS ORDERED: NS 100ML 100 ML IV ONE (20:20)
[2021-09-15] MEDS ORDERED: NS 250ML 250 ML ONE (20:26)
[2021-09-15] MEDS: LOVENOX SQ SCH (20:49)
[2021-09-15] MEDS: REMDESIVIR (EUA) 100 MG in NS 100ML 100 ML IV SCH (20:52)
--- NOTE | 2021-09-15 23:09 | PCM.ECHO ---
APPROVED REPORT EXAM: Comprehensive 2D, Doppler, and color-flow Echocardiogram. Patient Location: IN-PATIENT Indications Bradycardia 2D Dimensions LVOT Diameter 2.30 (1.8-2.4cm) LVEF(%) 64.26 (>50%) M-Mode Dimensions RVDd 1.75 (2.1-3.2cm) Left Atrium(MM) 4.00 (2.5-4.0cm) IVSd 1.10 (0.7-1.1cm) Aortic Root 3.00 (2.2-3.7cm) LVDd 4.85 (4.0-5.6cm) Aortic Cusp Exc 1.65 (1.5-2.0cm) PWd 1.10 (0.7-1.1cm) MV EPSS 0.82 (<0.5cm) IVSs 1.90 cm FS (%) 42.95 % LVDs 2.75 (2.0-3.8cm) ESV(Teich) 29.34 ml PWs 1.95 cm LVEF(%) 73.96 (>50%) Volumes Biplane 2D LV Volumes Biplane 2D LA Volumes LVEDv A4C 142.10 mL LA ESV Index LVESv A4C 50.78 mL Aortic Valve AoV Peak Thomas. 0.90 m/s AoV VTI 20.00 cm AO Peak GR. 3.30 mmHg AO Mean GR. 2.10 mmHg LVOT VTI 23.47 cm LVOT Peak Thomas. 0.97 m/s DEVEN(VTI)/BSA 4.86 cm2/m2 DEVEN (VTI) 4.86 cm2 Mitral Valve MV E Velocity 0.80m/s MR Peak Gr. 2.85mmHg MV A Velocity 0.85m/s TDI Lateral E' P. V 0.08m/s Medial E' P. V 0.10m/s Pulmonary Valve PV Peak Velocity 0.60m/s PV Peak Grad. 1.45mmHg RVOT VTI 14.87cm Tricuspid Valve TR P. Velocity 1.55m/s RAP ESTIMATE 10.00mmHg TR Peak Gr. 9.65mmHg RVSP 19.65mmHg LEFT VENTRICLE The left ventricle is normal size. The left ventricular systolic function is normal. The left ventricular ejection fraction is within the normal range. There is normal left ventricular wall thickness. There is normal LV segmental wall motion. There is no ventricular septal defect visualized. No left ventricle thrombus noted on this study. LVEF is 65-70%. RIGHT VENTRICLE The right ventricle is normal size. The right ventricular systolic function is normal. There is normal right ventricular wall thickness. ATRIA The left atrium size is normal. The right atrium size is normal. The interatrial septum is intact with no evidence for an atrial septal defect. AORTIC VALVE The aortic valve is normal in structure. There is no aortic valvular stenosis. No aortic regurgitation is present. There is no aortic valvular vegetation. MITRAL VALVE The mitral valve is normal in structure. There is no mitral valve stenosis. Mild mitral regurgitation. There is no evidence of mitral valve vegetations. TRICUSPID VALVE The tricuspid valve is normal in structure. There is no tricuspid valve stenosis. Mild tricuspid regurgitation. There is no tricuspid valve vegetations. PULMONIC VALVE Pulmonic valve is not well visualized. There is no pulmonic valvular stenosis. There is no pulmonic valvular regurgitation. GREAT VESSELS The aortic root is normal in size. Pulmonary artery is not well visualized. Aortic arch is not well visualized. The IVC is normal in size and collapses >50% with inspiration. PERICARDIUM There is no pericardial effusion. Other Information Study Quality: Fair <Conclusion> The left ventricular systolic function is normal. LVEF is 65-70%. Mild mitral regurgitation. Mild tricuspid regurgitation. Electronically signed by : LANDON CULP. 09/15/2021 23:09:37
[2021-09-16] VITALS: BP 143/86
[2021-09-16] MEDS: HUMALOG SQ SCH ×3 (03:01→12:00)
[2021-09-16 04:40] LABS: BASOPHIL % 0.2 % (0.0-0.2); EOSINOPHIL % 0.5 % (0.0-5.0); LYMPHOCYTES % 12.8 % (24.0-44.0); MEAN CORP HGB 28.7 pg (26-34); MONOCYTES # 0.6 10^3/uL (0.3-0.8); MONOCYTES % 9.4 % (5.0-12.0); NEUTROPHIL # 4.8 10^3/uL (1.8-7.7); NEUTROPHILS % 77.1 % (41.0-85.0); PLATELET COUNT 200 10^3/uL (150-400); RED CELL DISTRIBUTION WIDTH 15.8 % (11.5-14.5)
[2021-09-16 04:49] VITALS: BP 139/99
[2021-09-16 04:55] LABS: CARBON DIOXIDE 30.2 mmol/L (20.0-32)
[2021-09-16 07:29] VITALS: BP 145/64
[2021-09-16] MEDS: PEPCID IV SCH (08:18)
[2021-09-16] MEDS: DEXAMETHASONE 10 MG/ML VIAL IV SCH (08:19)
[2021-09-16] MEDS: ZINC SULFATE PO SCH (08:19)
[2021-09-16] MEDS: ASPIRIN EC PO SCH (08:19)
[2021-09-16] MEDS: VITAMIN D PO SCH (08:19)
[2021-09-16] MEDS: TAMIFLU PO SCH (08:19)
[2021-09-16] MEDS: VITAMIN C PO SCH (08:19)
[2021-09-16] MEDS: LANTUS SQ SCH (08:20)
--- NOTE | 2021-09-16 10:19 | NUR ---
o2 challenge- turned 02 off pt was satting 96% prior on 3l/m had pt get up and sit on side of bed and start moving around...sats 86% on RA replaced o2 at 2l/m. sats came back up to 92%
[2021-09-16] MEDS ORDERED: DEXA4TAB PO (11:34)
[2021-09-16] MEDS ORDERED: INSU100V8 SQ (11:34)
[2021-09-16] MEDS ORDERED: NEED1DIS MC (11:34)
[2021-09-16] MEDS ORDERED: ALCO1EAC MC (11:34)
[2021-09-16] MEDS ORDERED: ASPI-929 PO (11:34)
[2021-09-16] MEDS ORDERED: SYRI1DIS MC (11:34)
[2021-09-16] MEDS ORDERED: ASCO500T5 PO (11:34)
[2021-09-16] MEDS ORDERED: CHOL500045 PO (11:34)
[2021-09-16] MEDS ORDERED: ZINC220C7 PO (11:34)
--- NOTE | 2021-09-16 11:38 | NUR ---
DISCHARGE PLANNING PER REVIEW OF PATIENT'S CHART - PATIENT CURRENTLY LIVES HOME ALONE IN [place] AND HAS A FRIEND - CHLOE [phone] TO ASSIST NEEDED. PER DAILY ID MEETING - PATIENT COVID+[id number] AND REQUIRING [email or web address] CHALLENGE PERFORMED AND O2 ORDER, CHALLENGE, AND REFERRAL FAXED TO [phone]. NOTIFIED MARILYNN [email or web address] AND AWARE OF NEW O2 REFERRAL. NOTIFIED YUDY ESPARZA, [employer]IL [employer]IC NURSE OF O2 REFERRAL COMPLETED AND PATIENT TO CONTACT [facility] AND PORTABLE TANK AVAILABLE FOR PATIENT FOR TRANSFER.
--- NOTE | 2021-09-16 11:50 | PRM.DC ---
Discharge Summary Date of Discharge: Sep 16, 2021 Time of Request to Discharge: 09:00 Hospital Course 66-year-old male with previous history of diabetes mellitus was ap parently in her usual health he claims about 1 week prior to this admission developed upper respiratory symptoms that progressively got worse therefore went to the local emergency room today and found to have Covid positive with severe hypoxemia and troponin leak patient was brought to this hospital for further managed,Patient denies any chest pain nausea vomiting abdominal pain no diarrhea no urinary symptoms. Patient was hypoxic requiring high flow nasal cannula. Patient was admitted to the intensive care unit. Patient tested positive for COVID-19 and influenza B. Patient was treated with IV steroids along with Tamiflu and remdesivir. Patient oxygen requirement improved. Patient had an episode of bradycardia which resolved. 2D echo unremarkable. Today patient is only requiring 2 L/min nasal cannula.Blood sugar was elevated during hospital stay, patient started on insulin.Patient wants to go home. Arrangements for home oxygen to be done prior to discharge. Diet diabetic diet. Activity as tolerated. Follow-up with primary care physician in 1 to 2 weeks. Report back to the emergency room if worsening shortness of breath fever chills or worsening symptoms. Patient discharged in stable condition. Patient will be discharged home. Scheduled Ascorbic Acid (Ascorbic Acid), 500 MG PO BID Aspirin (Aspirin Ec), 81 MG PO DAILY Cholecalciferol (Vitamin D3) (Vitamin D3), 5,000 UNIT PO DAILY Dexamethasone (Dexamethasone), 4 TAB PO DAILY Insulin Glargine,Hum.rec.anlog (Lantus), 20 UNIT SQ HS Zinc Sulfate (Zinc Sulfate), 220 MG PO DAILY Durable Medical Equipment Alcohol Swab Cap (Ahsan Disinfectant Cap), [facility], (DME) [place], Insulin Disposable (Novofine 32), [facility], (DME) [place] W-Ndl,Disp,Insul,0.5ML (Insulin Syringe), [facility], (DME) Sepsis Evaluation @ Discharge Current Medications Medications (Trade) Dose Ordered Sig/Gabo PRN Reason Start Time Stop Time Status Last Admin Dextrose (Dextrose 50%-Water Syringe) 25 ml STAT PRN HYPOGLYCEMIA 09/11/21 20:30 10/11/21 20:29 Enoxaparin Sodium (Lovenox) 40 mg Q24HRS 09/11/21 20:30 10/11/21 20:29 09/11/21 21:00 Remdesivir 100 mg/ Sodium Chloride 120 ml @ 111.111 mls/hr Q24HRS 09/12/21 20:30 09/16/21 00:00 UNV Remdesivir 200 mg/ Sodium Chloride 140 ml @ 120.69 mls/ hr OT STAT 09/11/21 20:30 09/11/21 21:39 UNV 09/11/21 21:00 Plan Problems: (1) Pneumonia due to COVID-19 virus ICD Code: U07.1 - COVID-19; J12.82 - Pneumonia due to coronavirus disease 2019 SNOMED: 030001542846895050 (2) Influenza B ICD Code: J10.1 - Influenza due to other identified influenza virus with other respiratory manifestations SNOMED: 96297619 (3) Hyperglycemia ICD Code: R73.9 - Hyperglycemia, unspecified SNOMED: 37062915 Plan 66-year-old male with previous history of diabetes mellitus was apparently in her usual health he claims about 1 week prior to this admission developed upper respiratory symptoms that progressively got worse therefore went to the local emergency room today and found to have Covid positive with severe hypoxemia and troponin leak patient was brought to this hospital for further managed,Patient denies any chest pain nausea vomiting abdominal pain no diarrhea no urinary symptoms. Patient was hypoxic requiring high flow nasal cannula. Patient was admitted to the intensive care unit. Patient tested positive for COVID-19 and influenza B. Patient was treated with IV steroids along with Tamiflu and remdesivir. Patient oxygen requirement improved. Patient had an episode of bradycardia which resolved. 2D echo unremarkable. Today patient is only requiring 2 L/min nasal cannula.Blood sugar was elevated during hospital stay, patient started on insulin.Patient wants to go home. Arrangements for home oxygen to be done prior to discharge. Diet diabetic diet. Activity as tolerated. Follow-up with primary care physician in 1 to 2 weeks. Report back to the emergency room if worsening shortness of breath fever chills or worsening symptoms. Patient discharged in stable condition. Patient will be discharged home. SWATI VASQUEZ MD Sep 16, 2021 11:50
[2021-09-16 11:54] VITALS: BP 138/68
[2021-09-16 13:14] VITALS: BP 138/68
--- NOTE | 2021-09-16 14:01 | NUR ---
Discharge paperwork completed and IV removed. Pt was taken via wheelchair in stable condition with O2 tank at 2L to front lobby where friend was waiting to take him home via private vehicle. pt assisted into vehicle. O2 tank placed in vehicle at prescribed setting.
== END 2021-09-16 13:14 | disposition home or self-care (01) | DRG 177 ==
LOC: ICU 18:35 → MS 09-15 13:30
PROVIDERS: ADMIT Internal Medicine; ATTEND Family Medicine
PROC: XW033E5 Introduction of Remdesivir Anti-infective into Peripheral Vein, Percutaneous Approach, New Technology Group 5 (ICD-10-PCS; principal; 2021-09-11)
DX: U07.1 COVID-19 (principal); J96.01 Acute respiratory failure with hypoxia; J12.82 Pneumonia due to coronavirus disease 2019; E66.9 Obesity, unspecified; I10 Essential (primary) hypertension; E78.5 Hyperlipidemia, unspecified; J10.1 Influenza due to other identified influenza virus with other respiratory manifestations; E11.65 Type 2 diabetes mellitus with hyperglycemia; Z96.651 Presence of right artificial knee joint; Z79.4 Long term (current) use of insulin; Z68.38 Body mass index [BMI] 38.0-38.9, adult; Z82.49 Family history of ischemic heart disease and other diseases of the circulatory system
CPT/HCPCS: 36415; 36600; 71045; 80053; 82550; 82553; 82803; 82948; 83036; 83735; 83880; 84100; 84132; 84145; 84443; 84484; 85025; 85027; 93005; 93306; G0378; J1100; J1650; J1815; J3490; J7050